=== PATIENT | male | born 1960 | race Caucasian/White ===

== ENCOUNTER 2020-11-15 19:58 | Emergency (ER) | payer OTHER ==
[~2020-11-15] VITALS: Ht 182.9 cm; Wt 68.0 kg
--- NOTE | 2020-11-15 20:01 | NUR ---
PATIENT TO ER BED 12 C/O AGITATION TOWARDS STAFF AT [facility]. PATIENT IS AAOX2. NO SOB. BREATHING EVENLY AND UNLABORED ON ROOM AIR AT 98%. PATIENT IS CONNECTED TO THE MONITOR.
--- NOTE | 2020-11-15 20:01 | NUR ---
Note bronwyn in EDM - 11/15/20 at 2105 by ROLO PATIENT TO ER BED 12 C/O AGITATION TOWARDS STAFF AT [facility]. PATIENT IS AAOX4. NO SOB. BREATHING EVENLY AND UNLABORED ON ROOM AIR AT 98%. PATIENT IS CONNECTED TO THE MONITOR.
--- NOTE | 2020-11-15 20:08 | NUR ---
PER RA60; PT CAME FROM [facility] F[facility]: [id number]
[2020-11-15 20:33] LABS: BASOPHILS % (AUTO) 0.4 % (0.0-2.0); EOSINOPHILS % (AUTO) 1.8 % (0.0-6.0); HEMATOCRIT 43 % (39-51); HEMOGLOBIN 14.8 g/dL (13.5-17.5); LYMPHOCYTES # (AUTO) 1.2 /CMM (0.8-4.8); LYMPHOCYTES % (AUTO) 17.4 % (20.0-44.0); MEAN CORPUSCULAR HGB CONC 34 g/dl (31.0-36.0); MEAN CORPUSCULAR VOLUME 97 fL (80-96); MONOCYTES # (AUTO) 0.6 /CMM (0.1-1.30); NEUTROPHILS # (AUTO) 4.9 /CMM (1.8-8.9); NEUTROPHILS % (AUTO) 71.4 % (43.0-81.0); PLATELET COUNT (AUTO) 251 /CMM (150-450); RED BLOOD CELL COUNT(AUTO) 4.47 MIL/uL (4.5-6.0); WHITE BLOOD COUNT (AUTO) 6.8 K/uL (4.3-11.0)
--- NOTE | 2020-11-15 20:35 | NUR ---
[place] [id number] [phone]
[2020-11-15 20:41] LABS: BILIRUBIN,URINE NEGATIVE (NEGATIVE); COLOR,URINE YELLOW (YELLOW); LEUKOCYTE ESTERASE ,URINE NEGATIVE (NEGATIVE); NITRITE, URINE NEGATIVE (NEGATIVE); PROTEIN,URINE NEGATIVE (NEGATIVE); UGLUCOSE NEGATIVE (NEGATIVE)
[2020-11-15 20:42] LABS: CALCIUM, SERUM 8.7 mg/dL (8.5-10.1); CARBON DIOXIDE 27 mmol/L (21-32); CHLORIDE 106 mmol/L (98-107); GLUCOSE 85 mg/dL (74-106); POTASSIUM 3.8 mmol/L (3.5-5.1); SODIUM SERUM 142 mmol/L (136-145); UREA NITROGEN, BLOOD 26 mg/dL (7-18)
[2020-11-15 20:46] LABS: RBC,URINE 0-2 /HPF (0-2); WBC,URINE 0-2 /HPF (0-3)
[2020-11-15 20:47] LABS: BACTERIA,URINE None seen /HPF (None Seen); SQUAMOUS EPITHELIAL CELL,UR 0-2 /HPF (None Seen)
[2020-11-15 20:48] LABS: ACETAMINOPHEN < 0 ug/ml (10-30); ALANINE AMINOTRANSFERASE 22 U/L (12-78); ALBUMIN 3.7 g/dL (3.4-5.0); ALCOHOL, BLOOD < 3 mg/dL (0-0); ALKALINE PHOSPHATASE 72 U/L (46-116); ASPARTATE AMINOTRANSFERASE 16 U/L (15-37); BILIRUBIN,DIRECT 0.1 mg/dL (0.0-0.2); BILIRUBIN,TOTAL 0.8 mg/dL (0.2-1.0)
--- NOTE | 2020-11-15 21:52 | NUR ---
CALLED DANII FOR [facility]. Addendum: 11/15/20 at 2158 by ROLO LEFT VOICEMAIL
--- NOTE | 2020-11-15 22:50 | NUR ---
DR. AMBROSE SPEAKING ON THE PHONE WITH INDUSTRIAL SALES MANAGER TRAVIS FOY REGARDING EVALUATION. PER DANII, RECOMMENDED TO SEND PATIENT BACK TO FACILITY AT THIS TIME
--- NOTE | 2020-11-15 23:15 | NUR ---
STOCK CUTTER TRAVIS FOY ETA 1 HR
--- NOTE | 2020-11-16 01:38 | NUR ---
COMMUNICATIONS MARKETING INTERN TRAVIS FOY AT BEDSIDE FOR EVALUATION
--- NOTE | 2020-11-16 02:20 | NUR ---
MULTIPLE ATTEMPTS TO CONTACT FACILITY ([phone]). NO ANSWER, LEFT MESSAGE. WILL FOLLOW UP
--- NOTE | 2020-11-16 08:18 | NUR ---
[facility] [phone]
--- NOTE | 2020-11-16 10:03 | NUR ---
[address] [place] [address]
--- NOTE | 2020-11-16 10:15 | NUR ---
TRIP #[id number] SPOKE WITH MAGDALENE FROM [facility]
--- NOTE | 2020-11-16 11:57 | NUR ---
CALLED TRANSPORT STILL WORKING ON IT
--- NOTE | 2020-11-16 12:06 | NUR ---
[facility] WILL BE HERE IN 90 MINS PER SRINIVAS
--- NOTE | 2020-11-16 14:14 | NUR ---
THE PATIENT [facility]SF[facility]ED TO [facility]. THE PATIENT LEFT ER IN STABLE CONDITION.
[2020-11-16 14:18] VITALS: BP 124/82
== END 2020-11-16 14:18 ==
LOC: ER 20:01
DX: R45.1 Restlessness and agitation (principal); F03.90 Unspecified dementia, unspecified severity, without behavioral disturbance, psychotic disturbance, mood disturbance, and anxiety; Z20.822 Contact with and (suspected) exposure to COVID-19
CPT/HCPCS: 36415; 80048; 80076; 80299; 80307; 80320; 81001; 85025; 87426; 99285; C9803; G0480